=== PATIENT | female | born 1960 | race Caucasian/White ===

== ENCOUNTER → 2017-11-03 08:50 | Outpatient (CLI) | payer OTHER ==
[~2017-11-03 08:50] MED LIST: AMBIEN; LISINOPRIL; MOVIC; NEUROTIN; PAXIL; PERCOCET; ROBAXIN; ZANAX; [UNRECOGNIZED DRUG - OTHER]; [UNRECOGNIZED DRUG - OTHER]; [UNRECOGNIZED DRUG - OTHER]
== END | disposition home or self-care (01) ==
LOC: LAB 08:50
DX: E11.9 Type 2 diabetes mellitus without complications (principal); E78.4 Other hyperlipidemia; I10 Essential (primary) hypertension; K62.5 Hemorrhage of anus and rectum; E55.9 Vitamin D deficiency, unspecified; E21.0 Primary hyperparathyroidism; E03.8 Other specified hypothyroidism; B20 Human immunodeficiency virus [HIV] disease; B34.8 Other viral infections of unspecified site

== ENCOUNTER 2018-06-01 09:06 | Outpatient (CLI) | payer OTHER | END 2018-06-01 09:58 | disposition home or self-care (01) | LOC: LAB 09:06 | DX: B20 Human immunodeficiency virus [HIV] disease (principal); Z11.4 Encounter for screening for human immunodeficiency virus [HIV] ==

== ENCOUNTER 2024-11-10 08:10 | Outpatient (CLI) | payer OTHER ==
[2024-11-10 08:50] LABS: PH,URINE 5.5 (5.0-8.0); URINE APPEARANCE Clear; URINE BILIRRUBIN Negative (NEGATIVE); URINE BLOOD Negative; URINE COLOR Dark Yellow; URINE GLUCOSE Negative (NEGATIVE); URINE KETONE Negative (NEGATIVE); URINE LEUKOCYTE Negative; URINE NITRATE Negative; URINE PROTEIN 30 (NEGATIVE)
[2024-11-10 08:54] LABS: URINE EPITHELIAL CELLS 33.3 uL (0.0-38.8); URINE WBC 26.9 uL (0.0-23.2)
[2024-11-10 08:57] LABS: HEMATOCRIT 35.2 % (36.0-45.00); HEMOGLOBIN 11.2 g/dL (12.0-15.00); MEAN CELL VOLUME 99.9 fL (80.00-100.00); MEAN CORPUSCULAR HEMOGLOBIN 31.7 pg (27.00-32.0); MEAN CORPUSCULAR HGB CONC 31.8 g/dl (32.0-36.0); PLATELET COUNT 249 K/uL (150-450); RED BLOOD COUNT 3.53 M/uL (4.00-6.00); RED CELL DISTRIBUTION WIDTH 15.1 % (11.5-14.5)
[2024-11-10 09:35] LABS: ALBUMIN 2.8 gm/dL (3.4-5.0); BILIRUBIN TOTAL 0.28 mg/dL (0.3-1.2); CALCIUM 9.6 mg/dL (8.5-10.1); CHOL HDL RATIO 3.9 (0-5.0); CREATININE SERUM 1.05 mg/dL (0.55-1.02); GFR 53.1; GLOBULINA 5.3 G/DL (2.4-3.5); POTASSIUM 4.81 mEq/L (3.5-5.1); TOTAL PROTEIN 8.1 gm/dL (6.4-8.2)
== END 2024-11-10 08:17 | disposition home or self-care (01) ==
LOC: LAB 08:10
PROVIDERS: ATTEND Internal Medicine Infectious Disease
DX: B20 Human immunodeficiency virus [HIV] disease (principal); D64.9 Anemia, unspecified; E78.2 Mixed hyperlipidemia

== ENCOUNTER → 2024-12-14 07:16 | Outpatient (CLI) | payer OTHER ==
[2024-12-14 08:07] LABS: PH,URINE 6.5 (5.0-8.0); URINE APPEARANCE Clear; URINE BILIRRUBIN Negative (NEGATIVE); URINE BLOOD Negative; URINE COLOR Yellow; URINE GLUCOSE Negative (NEGATIVE); URINE KETONE Negative (NEGATIVE); URINE LEUKOCYTE Negative; URINE NITRATE Negative; URINE PROTEIN 30 (NEGATIVE)
[2024-12-14 08:11] LABS: URINE BACTERIA 944.7 uL (0.0-1933); URINE EPITHELIAL CELLS 24.3 uL (0.0-38.8); URINE RBC 5.3 uL (0.0-20.8); URINE WBC 17.7 uL (0.0-23.2)
[2024-12-14 08:13] LABS: BASO % 0.3 % (0.1-1.2); EOS # 0.05 (0.04-0.54); EOS % 0.5 % (0.7-7.0); HEMATOCRIT 35.1 % (34.1-44.9); HEMOGLOBIN 11.3 g/dL (11.2-15.7); LYMPH # 7.59 (1.18-3.74); MEAN CORPUSCULAR HEMOGLOBIN 31.2 pg (25.6-32.2); MONO # 0.38 (0.24-0.82); MONO % 3.9 % (4.7-12.5); NEUT # 1.66 (1.56-6.13); NEUT % 17.1 % (34.0-71.1); PLATELET COUNT 265 K/uL (163-369); RED BLOOD COUNT 3.62 M/uL (3.93-5.22); RED CELL DISTRIBUTION WIDTH 15.9 % (11.6-14.4)
[2024-12-14 08:25] LABS: URINE CAST 0.58 uL (0.0-1.40)
[2024-12-14 08:53] LABS: ALBUMIN 2.3 gm/dL (3.4-5.0); BILIRUBIN TOTAL 0.28 mg/dL (0.3-1.2); CALCIUM 8.3 mg/dL (8.5-10.1); CREATININE SERUM 0.84 mg/dL (0.55-1.02); GFR 68.48; GLOBULINA 5.4 G/DL (2.4-3.5); POTASSIUM 3.47 mEq/L (3.5-5.1); TOTAL PROTEIN 7.7 gm/dL (6.4-8.2)
[2024-12-14 08:56] LABS: TSH 1.74 uIU/mL (0.358-3.74)
[2024-12-15 07:11] LABS: HEPATITIS A ANTIBODY IGG Positive (Negative); HEPATITIS B SURFACE ANTIBODY Non Reactive (.); hav igm Negative (Negative); hcv Non Reactive (Non Reactive); hep b c Negative (Negative); hep b s ag Negative (Negative)
[2024-12-15 21:12] LABS: chla t Negative (Negative); neiss Negative (Negative)
== END | disposition home or self-care (01) ==
LOC: LAB 07:16
DX: B20 Human immunodeficiency virus [HIV] disease (principal); Z11.4 Encounter for screening for human immunodeficiency virus [HIV]; Z20.1 Contact with and (suspected) exposure to tuberculosis; Z01.812 Encounter for preprocedural laboratory examination; E78.5 Hyperlipidemia, unspecified; E55.9 Vitamin D deficiency, unspecified; E11.9 Type 2 diabetes mellitus without complications; E03.9 Hypothyroidism, unspecified